=== PATIENT | female | born 1990 | race Two or more races ===

== ENCOUNTER 2017-08-10 02:28 | Inpatient (IN) | payer BC ==
[2017-08-10] MEDS ORDERED: EPSOM SALT 454 GM TP PRN (03:10)
[2017-08-10] MEDS ORDERED: MISOPROSTOL 200 MCG TAB PR PRN (03:10)
[2017-08-10] MEDS ORDERED: LIDOCAINE 1% 300 MG/30 ML SDV SC PRN (03:10)
[2017-08-10] MEDS ORDERED: TERBUTALINE SULFATE 1 MG/ML VIAL IV PRN (03:10)
[2017-08-10] MEDS ORDERED: OLIVE OIL 118 ML BTL MISC PRN (03:10)
[2017-08-10] MEDS ORDERED: OXYTOCIN/NORMAL SALINE 1,000 ML IV PRN (03:10)
[2017-08-10 03:43] LABS: PLATELET COUNT 129 10^3/uL (150-400)
--- NOTE | 2017-08-10 07:11 | PDGENHP ---
History and Physical History and Physical: HPI: Patient is a 27 yo G 2 P 1 at 39.4 weeks ega that presents to L&D with complaints of SROM large amount of clear fluid at midnight. She states baby is active, she denies painful contractions, denies bleeding, is feeling good. She was a late KYLE at 38 wks to [facility] from [facility] due to insurance change. She would like BTL. EDC: 08/13/17 which is based on 7 week U/S - unsure LMP Her is complicated by: Depression - stable now- taking Lexapro 10 mg daily - was hospitalized 02/15 for suicidal ideations. Review of Systems: Constitutional: Denies any fever, chills, or fatigue HEENT: denies any visual changes, difficulty swallowing, hearing loss Cardiovascular: Denies any chest pain, palpitations, leg swelling Respiratory: denies any cough, wheezing, or shortness of breathe GI: Denies any nausea, vomiting, diarrhea, constipation : denies any dysuria, urgency, frequency, vaginal bleeding Musculoskeletal: denies any muscle or bone pain Skin: denies any rashes Neuro: denies any headache, seizures, lightheadedness, dizziness, or loss of consciousness Psychiatric: denies any depression, anxiety, or SI/HI thoughts HISTORY: Previous OB history: 1 previous uncomplicated Past medical history: depression Past surgical history: non contributory Medications: PNV, iron, lexapro Allergies (list reaction): NKDA LABS: Rh: A pos ABS: Neg Rubella: Immune HbsAg: NR HIV: NR VDRL: NR 1hr: 105 GC: Neg Chlamydia: Neg GBS: neg PHYSICAL EXAM: Constitutional: WN, A&Ox3 HEENT: normocephalic atraumatic, supple Heart: RRR, no murmur Chest: CTA-B Abdomen: Soft, nontender, gravid SVE: 3/70/-2 Extremities: neg edema, negative bethany's sign Neuro: grossly normal Psych: normal affect assessment: Reassuring FHTs, baseline 130 +accels, no decels, moderate variability Contractions: toco q 6-8, mild Assessment: 1) 27 yo G 2 P 1 with IUP@39.4 weeks ega 2) SROM at midnight 3) GBS neg 4) Cat 1 FHR tracing 5) Desires PP BTL Plan: 1) Admit to L&D 2) Pitocin augmentation if not laboring by noon today 3) Diet as tolerated 4) Pain medication PRN, pt desires epidural 5) Intermittent monitoring per protocol at this time 6) Anticipate
[2017-08-10] MEDS ORDERED: LR 500 ML IV PRN (09:11)
--- NOTE | 2017-08-10 09:23 | OBPROG ---
Labor Progress Note Assessment/Plan: Assessment:27 yo at 39w4d by US at 7w4d, with PROM at 0000, irregular contractions since then. Desires tubal ligation. Plan: Will start pitocin - reviewed B/R/A of pitocin, and recommendation to proceed, with PROM x9 hours and no labor. Will consider pp tubal ligation after further review of records. Michaelle Reddy MD 08/10/17 09:12 Subjective/Intrapartum Course: 08/10/17 09:23 Pt doing well, feeling irregular contractions. Still leaking clear fluid. She thinks this baby is smaller than her first one. Voices desire to have PPBTL. Said this was not planned, cannot afford to have any more children. REviewed medical hx - hx of depression with hospitalization for suicidal ideation this - 02/15. Is taking Lexapro 10 mg daily. Hx of fibromylagia - stopped Lyrica with pos preg test. hx of 3 seizures - per testing was not epilepsy. Last seizure 2.5 yr ago, has been off seizure meds for one year. Has never had any surgeries. Allergies - had dystonic reaction with Compazine and/or Abilify POB: 40 wk 09/01/2013, epidural, uncomplicated, 6lb 12oz. Objective: 08/10/17 03:30 Patient ABO/Rh A POSITIVE 08/10/17 03:30 Per RN report: had SVE at 0400 - was 30/-2 gen - pleasant, NAD abd - soft, gravid, NT ext - calves NT, trace edema, 2+ DTRs US done - confirmed cephalic presentation, currently appears THIAGO/LOT - Contraction Pattern Assessment Current Contraction Pattern: Irregular - FHR Assessment Sr FHR (bpm): 120 FHR Pattern Variability: Moderate FHR Category: 1 Oxytocin Orders Assessment - Pre-Induction/Augmentation Assessment Indication: PROM Presentation: Vertex Gestational Age: 39 week(s) and 4 day(s) Gestational Age Determined By: Ultrasound (at 7w4d, unknown LMP) Estimated Weight: 2501-3400g Membrane Status: Ruptured Current Contraction Pattern: Irregular - Heart Rate Pattern Sr FHR Baseline (bpm): 120 FHR Category: 1 FHR Pattern Variability: Moderate FHR Accelerations: Present - Sterling's Score Dilation: 3-4cm Effacement: 60-70 Station: -2 Cervix: Medium Cervix Position: Mid Sterling Score Total: 7 - Induction/Augmentation Consent Risks/Benefits of Procedure Reviewed/Pt Agrees to Proceed: Yes ICD10 Worksheet Patient Problems: Problems Problem Status Onset PROM (premature rupture of membranes) Acute PROM (premature rupture of membranes) Acute - ICD10 Problem Qualifiers (1) PROM (premature rupture of membranes) (2) PROM (premature rupture of membranes)
[2017-08-10] MEDS ORDERED: OXYTOCIN/NORMAL SALINE 500 ML IV SCH (09:30)
[2017-08-10] MEDS: LR 1,000 ML IV PRN (09:37)
[2017-08-10] MEDS ORDERED: ONDANSETRON 4 MG/2 ML VIAL IVP PRN (11:02)
[2017-08-10] MEDS ORDERED: PHENYLEPHRINE HCL 100 MCG/ML SYR IVP PRN (11:02)
[2017-08-10] MEDS ORDERED: NALOXONE HCL 0.4 MG/ML INJ IVP PRN (11:02)
--- NOTE | 2017-08-10 11:04 | PDANEPAE ---
ANE Past Medical History - Cardiovascular History Hx Hypertension: No Hx Arrhythmias: No Hx Chest Pain: No Hx Coronary Artery / Peripheral Vascular Disease: No Hx CHF / Valvular Disease: No Hx Palpitations: No - Pulmonary History Hx COPD: No Hx Asthma/Reactive Airway Disease: No Hx Recent Upper Respiratory Infection: No Hx Oxygen in Use at Home: No Hx Sleep Apnea: No - Neurologic History Hx Cerebrovascular Accident: No Hx Seizures: Yes Hx Dementia: No - Endocrine History Hx Diabetes: No Hypothyroid: No Hyperthyroid: No Obesity: no - Renal History Hx Renal Disorders: No - Liver History Hx Hepatic Disorders: No - Neurological & Psychiatric Hx Hx Neurological and Psychiatric Disorders: Yes Neurological / Psychiatric History Comment: H/O seizures. depression - Cancer History Hx Cancer: No - Congenital Disorder History Hx Congenital Disorders: No - GI History GERD: no Hx Gastrointestinal Disorders: No - Chronic Pain History Chronic Pain: No ANE Review of Systems Review of Systems: - Exercise capacity Exercise capacity: >=4 METS ANE Patient History - Allergies Allergies/Adverse Reactions: aripiprazole [From Abilify] Allergy (Verified 08/10/17 07:02) Eyes rolled back in head prochlorperazine [From Compazine] Allergy (Verified 08/10/17 07:02) Eyes rolled back in head - Home Medications Home Medications: Escitalopram Oxalate [Lexapro] 10 mg PO DAILY 08/10/17 [Last Taken 08/09/17] Ferrous Sulfate [Iron] 1 tab PO DAILY 08/10/17 [Last Taken 08/09/17] Vit27&Calcium/Iron/FA [] 1 tab PO DAILY 08/10/17 [Last Taken ] - Anes Hx Anes Hx: no prior problems - Smoking Hx Smoking Status: Former smoker - Alcohol Use Alcohol Use: None - Family Anes Hx Family Anes Hx: neg - N/A ANE Labs/Vital Signs - Labs Result Diagrams: 08/10/17 03:30 - Vital Signs Height: 152.4 cm Weight: 66.678 kg ANE Physical Exam - Airway Neck exam: FROM Mallampati Score: Class 2 Mouth exam: normal dental/mouth exam - Pulmonary Pulmonary: no respiratory distress, no rales or rhonchi, clear to auscultation - Cardiovascular Cardiovascular: regular rate and rhythym, no murmur, rub, or gallop - ASA Status ASA Status: II ANE Anesthesia Plan Anesthesia Plan: epidural Total IV Anesthesia: No
[2017-08-10] MEDS ORDERED: fentaNYL 100 MCG/2 ML INJ ONE (11:18)
[2017-08-10] MEDS ORDERED: fentaNYL 200 MCG, BUPIVACAINE 0.5% 20 ML in NS 100 ML EP SCH (11:30)
[2017-08-10] MEDS ORDERED: LR 500 ML IV SCH (11:30)
[2017-08-10] MEDS ORDERED: ACETAMINOPHEN 500 MG TAB PO ONE (21:00)
[2017-08-10] MEDS ORDERED: SIMETHICONE 80 MG TAB CHEW PO PRN (22:19)
[2017-08-10] MEDS ORDERED: HYDROCORTISONE 0.5% CREAM TP PRN (22:19)
[2017-08-10] MEDS ORDERED: ACETAMINOPHEN 325 MG TAB PO PRN (22:19)
--- NOTE | 2017-08-10 22:30 | OBDEL ---
Info Type: Vaginal (low forceps assisted delivery) Presentation at Delivery: Vertex L&D Analgesia/Anesthesia Type: Epidural GBS+: No Intrapartum Medications: Generic Name Dose Route Start Last Admin Trade Name Freq PRN Reason Stop Dose Admin Diphenhydramine HCl 25 - 50 mg 08/10/17 11:02 08/10/17 14:23 Benadryl Injection IVP 02/06/18 11:01 25 mg Q6HRS PRN Administration Itching Lactated Ringer's 1,000 mls @ 0 mls/hr 08/10/17 03:10 08/10/17 09:37 Lr IV 08/11/17 03:09 1,000 mls PRN PRN Administration SEE PROTOCOL CONDITIONS Protocol Per Protocol Oxytocin/Sodium Chloride 500 mls @ 0 mls/hr 08/10/17 09:30 08/10/17 09:40 Pitocin 30 Units/Ns (Premix) IV 02/06/18 09:29 500 mls CONT VANIA Administration Protocol Per Protocol Discontinued Medications Generic Name Dose Route Start Last Admin Trade Name Freq PRN Reason Stop Dose Admin Acetaminophen 1,000 mg 08/10/17 21:00 08/10/17 21:01 Tylenol PO 08/10/17 21:01 1,000 mg ONCE ONE Administration - Infant Care Provider [employer]/SCORING MACHINE OPERATOR: Robyn Greene - Hospital Course Intrapartum: 08/10/17 09:23 Pt doing well, feeling irregular contractions. Still leaking clear fluid. She thinks this baby is smaller than her first one. Voices desire to have PPBTL. Said this was not planned, cannot afford to have any more children. REviewed medical hx - hx of depression with hospitalization for suicidal ideation this - 02/15. Is taking Lexapro 10 mg daily. Hx of fibromylagia - stopped Lyrica with pos preg test. hx of 3 seizures - per testing was not epilepsy. Last seizure 2.5 yr ago, has been off seizure meds for one year. Has never had any surgeries. Allergies - had dystonic reaction with Compazine and/or Abilify POB: 40 wk 09/01/2013, epidural, uncomplicated, 6lb 12oz. Indications for Delivery: SROM Assissted Delivery Assisted Delivery Type: Deon Forceps (Ashish-Luikart forceps ) Station: +3 Pulls (Total): 1 Assisted Delivery Comment: Pt was completely dilated at 1825 and started pushing. Contractions were over 5 min apart so pitocin was restarted. Overtime, the pt's epidural bag ran out and she became quite uncomfortable and preferred not to push. Her epidural was bolused and and a new bag was hung, but she was still quite uncomfortable. The anesthesiologist was paged. While awaiting his arrival, the heart rate tracing showed repetitive variable decelerations to the 70s. Despite the patient's continued discomfort, I recommended proceeding with a forceps assisted delivery due to intolerance of labor. B/R/A of forceps were discussed, and the pt gave verbal consent to proceed. Her perineum was prepped with betadine. Sterile gown and gloves were donned. Her perineum was prepped with betadine. A red rubber catheter was used to drain 250ml from her bladder. sagittal suture was determined to be in the ROP or CHARU position, with a + 2 station. The Ashish-Luikart forceps were then applied in the standard fashion , using the gloved hand to protect the maternal vaginal wall, and carefully articulated together. The application was checked again and determine to be symmetric and appropriately placed on the vertex. With the next contraction, with one pull, the vertex delivered and the forceps were carefully removed as the perineum was supported. There were no signs of dystocia. CHARU position was confirmed. A nuchal cord was palpated and while it was being reduced on the perineum, it avulsed. Immediately, with gentle traction and maternal efforts, the left anterior shoulder was delivered easily, followed by the remainder of the body. The baby was delivered to the maternal abdomen, and the loose end of the cord was immediately clamped. DANITA Guzman, was present for the rescusitation and confirmed no masters from forceps on the baby's head, and baby was moving all extremities spontaneously. The placenta then delivered spontaneously after cord blood was obtained. A second degree perineal laceration was identified and repaired with 3.0 Vicryl in standard fashion. was given back to the patient and both were in stable condition with the RN, Cierra, in attendance. Data QUAN: 08/13/17 Gestational Age: 39 week(s) and 4 day(s) Sr Delivery Date: 08/10/17 Delivery Time: 21:11 Sex of : Female Score (1 Min): 7 Score (5 Min): 9 ICD10 Worksheet Patient Problems: Problems Problem Status Onset PROM (premature rupture of membranes) Acute PROM (premature rupture of membranes) Acute Sterilization consult Acute Sterilization consult Acute - ICD10 Problem Qualifiers (1) PROM (premature rupture of membranes) Qualifiers: PROM onset of labor timing: onset of labor within 24 hours of rupture (2) Sterilization consult
[2017-08-10] MEDS: IBUPROFEN 600 MG TAB PO PRN (23:43)
--- NOTE | 2017-08-10 23:50 | OBPP ---
Progress Note Assessment/Plan: Assessment:27 yo at 39w4d by US at 7w4d, with PROM at 0000, irregular contractions since then. Desires tubal ligation. Plan: Will start pitocin - reviewed B/R/A of pitocin, and recommendation to proceed, with PROM x9 hours and no labor. Will consider pp tubal ligation after further review of records. Michaelle Reddy MD 08/10/17 09:12 08/10/17 23:44 A: Pt is just over 2 hours s/p forceps assisted delivery and still voices desire to have a tubal ligation done during this admission. P: Will make NPO after midnight, and place on surgery schedule to do tomorrow morning. Will leave epidural catheter in place. Will check HCT in AM, as mildly anemic on admission. Dr. Skelton agreeable to plan of care. Pt with BC insurance - not Medicaid so no time limits applicable. Pt understands that sterilization procedure is not reversible, and she is 100% done with having children. I even discussed the possibility that her significant other and both kids could be killed in a car accident, and she is only 27 years old. She responded she does not ever want to be again. I explained that the tubal ligation is an elective procedure and there is a possibility that it will not be able to be completed tomorrow or during this hospitalization. Michaelle Reddy MD 08/10/17 23:52 Subjective/ Course: 08/10/17 23:50 Pt voices desire to have a tubal ligation done during this hospitalization. Is feeling well since delivery. Objective: 08/10/17 03:30 Patient ABO/Rh A POSITIVE 08/10/17 03:30 VS at 2345: 36.5 96 113/62 Uterine Position/Fundal Height: Umbilicus -2 Uterine Tone: Firm
[2017-08-11] MEDS: HYDROCODONE/APAP 5/325 TAB PO PRN ×3 (06:28→14:19)
[2017-08-11] MEDS ORDERED: ceFAZolin 2 GM/DEXTROSE 100 ML IV ONE (08:07)
--- NOTE | 2017-08-11 08:21 | PDHPUP ---
History & Physical Update H&P update statement: This history and physical update is based on an assessment of the patient which was completed after admission or registration (within 24 hours), but prior to the surgery/procedure. Pt desires sterilization at this time; states family status is complete Pt understands that sterilization procedure, tubal ligation, is permanent and is not reversible, and she is 100% done with having children even in case of accidental to spouse and 2 other children. She does not want to be again Discussed R/B/A to the procedure including but not limited to bleeding, infection, and damage to surrounding organs. Also discussed failure rate and risk of tubal/ectopic Pt understands all risks of the procedure and wants to proceed with surgery at this time Will proceed with mini-laparotomy Surgical consents obtained and on chart Abx construction plumber to OR SCDs for DVT prophylaxis Pt has epidural catheter in place and has been NPO after mn Anesthesiology is aware H&P update: H&P reviewed & patient examined, no change in patient's condition since H&P completed
[2017-08-11] MEDS ORDERED: ceFAZolin 2 GM/SWFI 2 GM/20 ML SYR IVP ONE (08:30)
[2017-08-11] MEDS ORDERED: fentaNYL 100 MCG/2 ML INJ ONE (08:49)
--- NOTE | 2017-08-11 09:37 | POSTOPPROG ---
Post Op Note Date of Operation: 08/11/17 Surgeon: Heidi Skelton Web Worker: Mary Patel Anesthesiologist: Dr. Tang Anesthesia: Epidural Pre-op Diagnosis: Request for permanent sterilization; family status is complete Post-op Diagnosis: Request for permanent sterilization; family status is complete Indication: 27 y/o s/p PPD #1 requesting sterilization Procedure: tubal ligation-mini laparotomy; modified Spring Findings: Uterus at umbilicus and b/l tubes grossly normal appearing Inf/Abcess present in the surg proc area at time of surgery?: No Depth: Organ Space EBL: 50-100 (50 cc) Total fluids administered: 500 cc Complications: None Specimen(s): Portions of b/l tubes
--- NOTE | 2017-08-11 09:43 | POSTANESTH ---
Post Anesthetic Evaluation Cardiovascular Status: Normal, Stable Respiratory Status: Normal, Stable Level of Consciousness/Mental Status: Can Participate in Eval Pain Control: Adequate, Prn Tx Ordered Nausea/Vomiting Control: Adequate, Prn Tx Ordered Complications Possibly Related to Anesthesia: None Noted
[2017-08-11] MEDS: LR 1,000 ML IV PRN (10:19)
[2017-08-11] MEDS: ESCITALOPRAM OXALATE 10 MG TAB PO SCH (10:44)
[2017-08-11] MEDS: FERROUS SULFATE 325 MG TAB PO SCH (10:44)
[2017-08-11] MEDS: IBUPROFEN 600 MG TAB PO PRN ×2 (10:50→19:21)
--- NOTE | 2017-08-11 14:05 | GOP ---
[f rep st] OPERATIVE REPORT DATE OF OPERATION: 08/11/2017 SURGEON: Heidi Skelton DO PAYROLL BOOKKEEPER: EBONY Mcdonnell. ANESTHESIA: Epidural. ANESTHESIOLOGIST: Dr. Tang. PREOPERATIVE DIAGNOSIS: Request for permanent sterilization, family status complete. POSTOPERATIVE DIAGNOSIS: Request for permanent sterilization, family status complete. PROCEDURE PERFORMED: tubal ligation, Modified Spring method. FINDINGS: Grossly normal-appearing uterus and tubes bilaterally. SPECIMENS: Segments of bilateral tubes. ESTIMATED BLOOD LOSS: 50 mL. INDICATIONS: The patient is a 27-year-old, G2, P2, status post forcep-assisted vaginal delivery, day 1, who desires permanent sterilization at this time. She states family status is complete. We discussed risks, benefits, alternatives of procedure including, but not limited to, bleeding, infection, and damage to surrounding organs. We also discussed risk of failure of 3 in 5 in 1000 with increased risk of ectopic if does occur. The patient understands all risks at this time and wants to proceed with surgery. The patient was properly consented. DESCRIPTION OF PROCEDURE: The patient was taken to the operating room where epidural was found to be adequate. She was placed in supine position, prepped and draped in normal sterile fashion. A small transverse infraumbilical skin incision was then made with a scalpel. Incision was carried down to the underlying fascia with the Bovie. The fascia was incised in the midline and extended bluntly. The peritoneum was identified and then entered bluntly. Patient's left fallopian tube was then identified, brought to the incision, grasped with a Huan clamp. The tube was then followed out to the fimbria. Huan clamp was then used to grasp the tube approximately 4 cm from the cornual region and about a 3 cm segment of tube was then ligated with free ties of 0 plain gut and excised. Good hemostasis was noted. The lumen of the tube was then cauterized. Again, hemostasis was noted. The tube was then returned to the abdomen. The right fallopian tube was then in a similar fashion, identified, brought to the incision, grasped with a Henderson clamp. Tube was then followed out to the fimbria and a Huan clamp was then used to grasp the tube approximately 4 cm from the cornual region and a 3 cm segment of tube was then ligated with free ties of 0 plain gut. Excellent hemostasis was noted. Tube was then returned to the abdomen. The fascia was then closed using 0 Vicryl. Hemostasis was noted. The subcutaneous layer was then closed with 2-0 Vicryl and the skin was closed with 4-0 Vicryl on a Francisco needle. The patient tolerated the procedure well. No complications. Sponge, lap, and needle counts correct x2. The patient was then taken to recovery room in stable condition. COMPLICATIONS: None. FLUIDS: 500 mL LR. URINE OUTPUT: Patient emptied her bladder prior to the procedure. /[id number]/MODL MTDD
[2017-08-11] MEDS ORDERED: HYDROmorphONE/DILAUDID 2 MG/ML INJ IVP PRN (16:15)
--- NOTE | 2017-08-11 17:31 | OBPP ---
Progress Note Assessment/Plan: Assessment: 1) s/p forcep-assisted PPD # 1 - pt is stable 2) s/p PPTL POD # 0 3) Anemia - pt is asymptomatic Plan: Continue routine pp and post-op care Pain is better controlled with IV Dilaudid Dressing to be removed in am and steri strips to be applied Plan for d/c home in am /08/11/17 17:32 Subjective/ Course: 08/10/17 23:50 Pt voices desire to have a tubal ligation done during this hospitalization. Is feeling well since delivery. 08/11/17 17:33 Pt seen and examined. Her pain is better controlled with IV Dilaudid and she is not having that much itching. Pt is OOB, [place] regular diet, voiding and passing flatus. Mod lochia. Denies any f/c/n/v/CP or SOB. BF well so far, seen by . Objective: 08/11/17 05:30 Patient ABO/Rh A POSITIVE 08/10/17 03:30 Temp Pulse Resp BP Pulse Ox 36.6 C 86 17 117/79 93 08/11/17 14:00 08/11/17 14:00 08/11/17 14:00 08/11/17 14:00 08/11/17 14:00 Uterine Position/Fundal Height: Umbilicus -1 Uterine Tone: Firm Physical Exam - Physical Exam Respiratory: lungs clear, normal breath sounds Cardiac/Chest: regular rate, rhythm Abdomen: normal bowel sounds, non-tender, soft, flatus (+), incision (C/D/I with dressing in place), dressing (Area marked for oozing and no post exchange manager last 4 hours) Extremities: non-tender, normal inspection Skin: normal color, warm/dry Neuro/Psych: alert, normal mood/affect, oriented x 3
[2017-08-11] MEDS: DOCUSATE SODIUM 100 MG CAP PO PRN (19:20)
[2017-08-11] MEDS: HYDROmorphONE/DILAUDID 2 MG TAB PO PRN ×2 (19:21→23:00)
[2017-08-12] MEDS: IBUPROFEN 600 MG TAB PO PRN ×3 (01:58→15:53)
[2017-08-12] MEDS: HYDROmorphONE/DILAUDID 2 MG TAB PO PRN (01:58)
[2017-08-12] MEDS: HYDROCODONE/APAP 5/325 TAB PO PRN ×3 (03:08→15:53)
[2017-08-12] MEDS: ESCITALOPRAM OXALATE 10 MG TAB PO SCH (10:03)
[2017-08-12] MEDS: FERROUS SULFATE 325 MG TAB PO SCH (10:04)
[2017-08-12] MEDS: DOCUSATE SODIUM 100 MG CAP PO PRN (10:30)
[2017-08-12 11:43] VITALS: BP 114/60
--- NOTE | 2017-08-12 11:50 | OBPP ---
Progress Note Assessment/Plan: Assessment: PPD 2 and POD 1 s/p and PPBTL anemia Plan: D/C home, [place] for pain 08/12/17 11:47 Subjective/ Course: 08/10/17 23:50 Pt voices desire to have a tubal ligation done during this hospitalization. Is feeling well since delivery. 08/11/17 17:33 Pt seen and examined. Her pain is better controlled with IV Dilaudid and she is not having that much itching. Pt is OOB, [place] regular diet, voiding and passing flatus. Mod lochia. Denies any f/c/n/v/CP or SOB. BF well so far, seen by . 08/12/17 11:47 Pt doing ok - flair of pain last noc and rec'd dilaudid. Disc caution with norco and constipation. rec to push fluids. urinating fine. bld is lessened. baby is latching better than first. Objective: 08/11/17 05:30 Patient ABO/Rh A POSITIVE 08/10/17 03:30 Temp Pulse Resp BP Pulse Ox 36.8 C 80 18 114/60 96 08/12/17 10:00 08/12/17 10:00 08/12/17 10:00 08/12/17 10:00 08/12/17 10:00 Uterine Position/Fundal Height: Umbilicus -1 Uterine Tone: Firm Physical Exam - Physical Exam Abdomen: non-tender (approp post op tenderness), soft, incision (umb incision dry, steri strips are CDI), other (normal lochia) Extremities: non-tender, pedal edema (mild) Skin: normal color, warm/dry Neuro/Psych: alert, normal mood/affect
--- NOTE | 2017-08-12 11:59 | OBGCSDC ---
General Delivery Information - General Info : 2 Para: 2 Abortions: 0 Type: Vaginal (low forceps assisted delivery) L&D Analgesia/Anesthesia Type: Epidural Admission Date: 08/10/17 Labs: Patient ABO/Rh A POSITIVE 08/10/17 03:30 Hct 30.9 % (38.0-47.0) L 08/11/17 05:30 - Hospital Course Intrapartum: 08/10/17 09:23 Pt doing well, feeling irregular contractions. Still leaking clear fluid. She thinks this baby is smaller than her first one. Voices desire to have PPBTL. Said this was not planned, cannot afford to have any more children. REviewed medical hx - hx of depression with hospitalization for suicidal ideation this - 02/15. Is taking Lexapro 10 mg daily. Hx of fibromylagia - stopped Lyrica with pos preg test. hx of 3 seizures - per testing was not epilepsy. Last seizure 2.5 yr ago, has been off seizure meds for one year. Has never had any surgeries. Allergies - had dystonic reaction with Compazine and/or Abilify POB: 40 wk 09/01/2013, epidural, uncomplicated, 6lb 12oz. : 08/10/17 23:50 Pt voices desire to have a tubal ligation done during this hospitalization. Is feeling well since delivery. 08/11/17 17:33 Pt seen and examined. Her pain is better controlled with IV Dilaudid and she is not having that much itching. Pt is OOB, [place] regular diet, voiding and passing flatus. Mod lochia. Denies any f/c/n/v/CP or SOB. BF well so far, seen by . 08/12/17 11:47 Pt doing ok - flair of pain last noc and rec'd dilaudid. Disc caution with norco and constipation. rec to push fluids. urinating fine. bld is lessened. baby is latching better than first. Vaginal - Delivery Provider Delivery Physician/CNM: Michaelle Reddy - Diagnosis Labor: Augmented Rupture of Membranes Type: Spontaneous Amniotic Fluid Color: Clear Laceration: 2nd Degree Delivery Events: Nuchal Cord (x1 tight and avulsed cord), Post Hemorrhage (500 EBL) - Procedures Assisted Delivery Type: Deon Forceps (Ashish-Luikart forceps ) - Delivery Providers Surgeon: Heidi Skelton [place] Data QUAN: 08/13/17 Gestational Age: 39 week(s) and 6 day(s) Sr Delivery Date: 08/10/17 Delivery Time: 21:11 Sex of : Female [place] Weight (gm): 3060 g Score (1 Min): 7 Score (5 Min): 9 Discharge Information - Discharge Information Prescriptions: Hydrocodone/APAP 5/325 [[place] 5/325 (*)] 1 - 2 tab PO Q4HRS PRN #10 tab PRN Reason: Pain, Moderate Condition: Good Instruction/Follow Up: See Instruction Sheet, Two Weeks (with Dr Skelton), Four Weeks (with therapist), Six Weeks (with Barry)
== END 2017-08-12 16:31 | disposition home or self-care (01) | DRG 767 ==
LOC: FLD 02:28 → OBSVTOIN 03:10 → FOB 08-11 00:06
PROVIDERS: ADMIT Advanced Practice Midwife; ATTEND Obstetrics & Gynecology
PROC: 0KQM0ZZ Repair Perineum Muscle, Open Approach (ICD-10-PCS; principal; 2017-08-10)
PROC: 10D07Z3 Extraction of Products of Conception, Low Forceps, Via Natural or Artificial Opening (ICD-10-PCS; principal; 2017-08-10)
PROC: 10E0XZZ Delivery of Products of Conception, External Approach (ICD-10-PCS; principal; 2017-08-10)
PROC: 0UB70ZZ Excision of Bilateral Fallopian Tubes, Open Approach (ICD-10-PCS; principal; 2017-08-10)
DX: O42.02 Full-term premature rupture of membranes, onset of labor within 24 hours of rupture (principal); O69.1XX0 Labor and delivery complicated by cord around neck, with compression, not applicable or unspecified; O70.1 Second degree perineal laceration during delivery; O72.1 Other immediate postpartum hemorrhage; O99.344 Other mental disorders complicating childbirth; F32.9 Major depressive disorder, single episode, unspecified; O90.81 Anemia of the puerperium; Z30.2 Encounter for sterilization; Z3A.39 39 weeks gestation of pregnancy; Z37.0 Single live birth
CPT/HCPCS: J0690; J1170; J1200; J2370; J2590; J3010; J3105

== ENCOUNTER → 2017-09-01 | Outpatient (CLI) | payer BC | LOC: FLACT 13:34 | PROVIDERS: ATTEND Advanced Practice Midwife | DX: Z39.1 Encounter for care and examination of lactating mother (principal) | CPT/HCPCS: G0463 ==